=== PATIENT | female | born 1970 | race Caucasian/White ===

== ENCOUNTER 2020-07-18 08:18 | Emergency (ER) | payer OTHER, MEDICAID ==
[~2020-07-18] VITALS: Ht 167 cm; Wt 117.9 kg
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
[2020-07-18 09:19] LABS: BACTERIA,URINE MODERATE /HPF; BILIRUBIN,URINE NEGATIVE (NEGATIVE); CLARITY,URINE CLOUDY; COLOR,URINE YELLOW; GLUCOSE, URINE (UA) NEGATIVE (NEGATIVE); KETONES,URINE NEGATIVE (NEGATIVE); LEUKOCYTE ESTERASE ,URINE TRACE (NEGATIVE); NITRITE,URINE NEGATIVE (NEGATIVE); PROTEIN,URINE NEGATIVE (NEGATIVE); RBC,URINE 0-2 /HPF
[2020-07-18 09:21] LABS: BASOPHILS % (AUTO) 1 % (0-10); EOSINOPHILS % (AUTO) 2 % (0-10); HEMATOCRIT 38 % (35-52); HEMOGLOBIN 12.5 G/DL (11.5-16.0); LYMPHOCYTES % (AUTO) 30 % (12-44); MEAN CORPUSCULAR HEMOGLOBIN 27 PG (25-34); MEAN CORPUSCULAR HGB CONC 33 G/DL (32-36); MEAN CORPUSCULAR VOLUME 84 FL (80-99); MEAN PLATELET VOLUME 9.7 FL (7.4-10.4); MONOCYTES % (AUTO) 10 % (0-12); NEUTROPHILS % (AUTO) 58 % (42-75); PLATELET COUNT 300 10^3/uL (130-400); WHITE BLOOD COUNT 9.8 10^3/uL (4.3-11.0)
[2020-07-18 09:22] LABS: BASOPHILS # (AUTO) 0.1 10^3/uL (0.0-0.1); EOSINOPHILS # (AUTO) 0.2 10^3/uL (0.0-0.3); LYMPHOCYTES # (AUTO) 2.9 X 10^3 (1.0-4.0); NEUTROPHILS # (AUTO) 5.7 X 10^3 (1.8-7.8)
[2020-07-18 09:26] LABS: AMPHETAMINE SCREEN, URINE NEGATIVE (NEGATIVE); BARBITURATE SCREEN URINE NEGATIVE (NEGATIVE); BENZODIAZEPINES SCREEN URINE NEGATIVE (NEGATIVE); CANNABINOID SCREEN, URINE NEGATIVE (NEGATIVE); COCAINE SCREEN URINE NEGATIVE (NEGATIVE); METHADONE STAT NEGATIVE (NEGATIVE); METHAMPHETAMINE SCREEN URINE S NEGATIVE (NEGATIVE); OPIATE SCREEN URINE NEGATIVE (NEGATIVE); OXYCODONE STAT NEGATIVE (NEGATIVE); PROPOXYPHENE STAT NEGATIVE (NEGATIVE); TRICYCLIC ANTIDEPRESSANTS SCRE NEGATIVE (NEGATIVE)
[2020-07-18 09:27] LABS: BUN/CREATININE RATIO 14; CARBON DIOXIDE 22 MMOL/L (21-32); CHLORIDE 113 MMOL/L (98-107); CREATININE SERUM 0.63 MG/DL (0.60-1.30); GFR ESTIMATED > 60; GLUCOSE 118 MG/DL (70-105); POTASSIUM 3.6 MMOL/L (3.6-5.0); SODIUM 144 MMOL/L (135-145)
[2020-07-18 09:28] LABS: ACETAMINOPHEN < 10 UG/ML (10-30); ALANINE AMINOTRANSFERASE 17 U/L (0-55); ALBUMIN 3.7 GM/DL (3.2-4.5); ALKALINE PHOSPHATASE 104 U/L (40-136); BILIRUBIN,TOTAL 0.2 MG/DL (0.1-1.0); SALICYLATE < 0.3 MG/DL (5.0-20.0)
--- NOTE | 2020-07-18 09:50 | NUR ---
PT ASKED TO USE PHONE BUT DID NOT WANT TO USE OUR PHONE. SHE BECAME IRATE WHEN NOT ALLOWED TO USE HER CELL AND WANTED THE DOOR WIDE OPEN SO SHE COULD VIEW WHAT WAS GOING ON OUTSIDE OF HER ROOM. THIS RN EXPLAINED THE DOOR CANNOT BE OPEN DUE TO OTHER PATIENTS PRIVACY AND SHE STARTED BEATING THE DOOR AND SCREAMING AND KICKING THE DOOR. PD WAS CALLED AND THEY ARE CURRENTLY IN THE ER AT THIS TIME.
[2020-07-18] MEDS ORDERED: NITROFURANTOIN 100 MG (MACROBID) CAPSULE PO ONE (10:00)
--- NOTE | 2020-07-18 10:00 | NUR ---
[facility] CALLED. [facility] CALLED AND REQUESTED PTS RECORDS. RECORDS FAXED AT THIS TIME.
--- NOTE | 2020-07-18 10:41 | NUR ---
[employer] Officer leaving at this time. Patient speaking with [facility] screener via Zoom at this time.
--- NOTE | 2020-07-18 11:00 | NUR ---
[facility] denied patient admission at this time. Dimitrios at [facility] informed.
--- NOTE | 2020-07-18 11:45 | NUR ---
FAXED RECORDS TO [facility].
--- NOTE | 2020-07-18 14:05 | NUR ---
Patient accepted to [facility] psychiatric unit pending negative COVID test. Rapid COVID test sent with violent crimes detective to [place] [facility]. PCR swab done and sent to lab with state form.
[2020-07-18 17:10] VITALS: BP 134/82
== END 2020-07-18 17:13 | disposition short-term general hospital (02) ==
LOC: ER FS 08:23
DX: F29 Unspecified psychosis not due to a substance or known physiological condition (principal); R45.851 Suicidal ideations; E66.01 Morbid (severe) obesity due to excess calories; Z20.828 Contact with and (suspected) exposure to other viral communicable diseases; Z88.5 Allergy status to narcotic agent; Z88.1 Allergy status to other antibiotic agents
CPT/HCPCS: 36415; 80053; 80306; 81000; 85025; 87088; 93041; G0480 ×3; U0002; 80320; 80329; 87635; 93005